=== PATIENT | male | born 2000 | race Caucasian/White ===

== ENCOUNTER 2019-08-16 18:27 | Emergency (ER) | payer BC ==
[~2019-08-16] VITALS: Ht 187.9 cm; Wt 108.9 kg
--- NOTE | ~2019-08-16 | EKG ---
[place], [place] ELECTROCARDIOGRAM REPORT NAME: ALLAN LARIOS UNIT #: [id number] ROOM: DOCTOR: EPIPHANY DRAFT REPORT BIRTHDATE: [birth year] [facility] Test Date: 2019-08-16 Test Time: 18:55:18 Pat Name: ALLAN LARIOS Department: Room: Gender: [employer]: : 2000 Requested By: SOPHIA RUIZ PA-C Order Number: [id number] Reading MD: Low Real MD Measurements Intervals [place] Rate: 87 P: 36 WA: 158 QRS: 48 QRSD: 97 T: 37 QT: 362 QTc: 436 Interpretive Statements Sinus rhythm No previous ECG available for comparison Electronically Signed On 08-17-2019 5:42:11 PDT by Low Real MD CM:EKGRPT:ELECTROCARDIOGRAM REPORT [id number] SOPHIA RUIZ PA-C EPIPHANY DRAFT REPORT SOPHIA RUIZ PA-C
[~2019-08-16 18:27] MED LIST: ALLEGRA60 M2 PO; KEFLEX500 MG PO; MOTRIN600 MG PO
[2019-08-16 19:37] LABS: BASO % 0.7 % (0.0-1.0); EOS # 0.1 10*3/uL (0.0-0.4); EOS % 2.3 % (1.0-4.0); HEMATOCRIT 46.5 % (42.0-52.0); HEMOGLOBIN 15.3 g/dl (14.0-18.0); LYMPH # 2.3 10*3/uL (1.3-4.4); LYMPH % 38.4 % (27.0-41.0); MEAN CELL VOLUME 92.8 fl (80.0-94.0); MEAN CORPUSCULAR HGB 30.5 pg (27.0-31.0); MEAN CORPUSCULAR HGB CONC 32.9 g/dl (33.0-37.0); MEAN PLATELET VOLUME 9.9 fl (9.6-12.3); MONO # 0.6 10*3/uL (0.1-1.0); MONO % 9.5 % (3.0-9.0); NEUT # 2.9 10*3/uL (2.3-7.9); NEUT % 48.9 % (47.0-73.0); PLATELET COUNT AUTOMATED 275 10*3/uL (130-400); RED BLOOD COUNT 5.01 10*6/uL (4.50-5.90); RED CELL DISTRI WIDTH 12.6 % (0-14.5)
[2019-08-16 20:08] LABS: ALKALINE PHOSPHATASE 84 U/L (45-117); BUN 10 mg/dl (7-24); CHLORIDE 110 mmol/L (98-107); CREATININE 1.03 mg/dL (0.70-1.30); LIPASE 69 U/L (73-393); POTASSIUM 3.5 mmol/L (3.5-5.1); SGOT/AST 15 IU/L (3-35); SGPT/ALT 31 U/L (12-78); SODIUM 141 mmol/L (136-145); TOTAL PROTEIN 7.1 gm/dL (6.4-8.2); TROPONIN I < 0.015 ng/ml (<0.045)
[2019-08-16 20:14] LABS: THYROID STIM HORMONE (HS) 0.905 uIU/ml (0.358-4.75)
[2019-08-16 20:19] LABS: BILIRUBIN NEGATIVE (NEGATIVE); BLOOD NEGATIVE (NEGATIVE); CLARITY CLOUDY (CLEAR); COLOR YELLOW (YELLOW); GLUCOSE NEGATIVE (NEGATIVE); KETONE NEGATIVE (NEGATIVE); LEUKO ESTERASE NEGATIVE (NEGATIVE); NITRITE NEGATIVE (NEGATIVE)
[2019-08-16 20:25] LABS: BACTERIA 2+
[2019-08-16 20:26] LABS: URINE AMPHETAMINES > 1000 (1000ng/ml); URINE BARBITURATES < 200 (200ng/ml); URINE BENZODIAZEPINES < 200 (200ng/ml); URINE CANNABINOIDS (THC) < 50 (50ng/ml); URINE COCAINE < 300 (300ng/ml); URINE METHADONE < 300 (300ng/ml); URINE OPIATES < 300 (300ng/ml); URINE PHENCYCLIDINE < 25 (25ng/ml)
== END 2019-08-16 20:46 | disposition home or self-care (01) ==
LOC: ED 18:27
PROVIDERS: Physician Assistant
DX: R00.2 Palpitations (principal); R06.02 Shortness of breath; R07.9 Chest pain, unspecified; R20.2 Paresthesia of skin; Z79.899 Other long term (current) drug therapy; F90.9 Attention-deficit hyperactivity disorder, unspecified type

== ENCOUNTER → 2019-08-27 | Outpatient (CLI) | payer BC | END | disposition home or self-care (01) | LOC: CARD 08-24 10:30 | DX: R00.2 Palpitations (principal); F98.8 Other specified behavioral and emotional disorders with onset usually occurring in childhood and adolescence; R10.84 Generalized abdominal pain ==